=== PATIENT | female | born 2000 | race Caucasian/White ===

== ENCOUNTER 2025-01-10 02:54 | Inpatient (IN) | payer BC ==
[2025-01-10 03:17] VITALS: BMI 27.3
[2025-01-10] MEDS ORDERED: Carboprost 250 MCG/ML AMP IM PRN (03:40)
[2025-01-10] MEDS ORDERED: Ibuprofen 800 MG TAB PO PRN (03:40)
[2025-01-10] MEDS ORDERED: Methylergonovine 0.2 MG/ML VIAL IM PRN (03:40)
[2025-01-10] MEDS ORDERED: Diphenoxylate HCl/Atropine Tablet PO PRN ×2 (03:40)
[2025-01-10] MEDS ORDERED: Tranexamic Acid 1,000 MG/10 ML VIAL IVP PRN (03:40)
[2025-01-10] MEDS ORDERED: hydrALAZINE 20 MG/ML VIAL SLOW IVP PRN (03:40)
[2025-01-10] MEDS ORDERED: Lidocaine 1% (PF) 30 ML VIAL SC PRN (03:40)
[2025-01-10] MEDS ORDERED: Ondansetron PF 4 MG/2 ML Vial IVP PRN ×2 (03:40→20:37)
[2025-01-10] MEDS ORDERED: Acetaminophen 500 MG TAB PO PRN (03:40)
[2025-01-10] MEDS ORDERED: Oxytocin 30 units/NS 500 ML 500 ML IV SCH (03:45)
[2025-01-10 04:09] LABS: Hematocrit 42.7 % (34.9-44.5); Hemoglobin 14.0 g/dL (12.0-15.5); Mean Corpuscular Hemoglobin 24.6 pg (27.0-33.0); Mean Corpuscular Volume 75.2 fL (81.6-98.3); Platelet Count 260 10x3/uL (150-450); Red Blood Cell (RBC) Count 5.68 10x6/uL (3.90-5.03); White Blood Cell (WBC) Count 11.88 10x3/uL (3.5-10.5)
[2025-01-10 04:56] LABS: Syphilis Antibody Index 0.13 S/CO (<1.00 Non-Reactive)
[2025-01-10 04:57] LABS: Hep B Surf Ag - L&D Non-Reactive S/CO (NonReactive)
[2025-01-10] MEDS ORDERED: Bupivacaine 0.25% HCL 30 ML VIAL ONE (08:00)
[2025-01-10] MEDS: fentaNYL/Ropivacaine Epidural 100 ML ONE (20:10)
[2025-01-10] MEDS ORDERED: diphenhydrAMINE 50 MG/ML VIAL IVP PRN (20:37)
[2025-01-10] MEDS ORDERED: Acetaminophen 325 MG TAB PO PRN (20:37)
[2025-01-10] MEDS ORDERED: fentaNYL 2 mcg/Ropivacaine 0.2% Epidural 100 ML CADD EPIDURAL SCH (20:45)
[2025-01-10] MEDS ORDERED: Communication Order-Pharmacy FS SCH (20:45)
[2025-01-11] MEDS ORDERED: Bisacodyl 10 MG SUPP PR PRN (05:35)
[2025-01-11] MEDS ORDERED: Milk Of Magnesia 30 ML UDCUP PO PRN (05:35)
[2025-01-11] MEDS ORDERED: hydrALAZINE 20 MG/ML VIAL SLOW IVP PRN (05:35)
[2025-01-11] MEDS ORDERED: Benzocaine-Menthol 82.5 ML CAN TOP PRN (05:35)
[2025-01-11] MEDS ORDERED: Oxytocin 30 units/NS 500 ML 500 ML IV SCH (05:35)
[2025-01-11] MEDS ORDERED: Methylergonovine 0.2 MG/ML VIAL IM PRN (05:35)
[2025-01-11] MEDS ORDERED: HYDROcodone/Acetaminophen 5/325 mg Tablet PO PRN ×2 (05:35)
[2025-01-11] MEDS: Ibuprofen 800 MG TAB PO SCH (06:46)
[2025-01-11] MEDS: Boostrix 0.5 ML (Tdap) VIAL (>/=7 yrs of age) IM ONE (07:32)
[2025-01-11] MEDS: Ferrous Sulfate 325 MG TAB PO SCH (07:32)
[2025-01-12 07:58] VITALS: BP 100/57; TEMP 97.7
== END 2025-01-12 18:30 | disposition home or self-care (01) | DRG 807 ==
LOC: CSHLD/OP 02:54 → CSHLD 04:02 → CSHPP 01-11 05:00
PROVIDERS: ADMIT Obstetrics & Gynecology; ATTEND Obstetrics & Gynecology
PROC: 10E0XZZ Delivery of Products of Conception, External Approach (ICD-10-PCS; principal; 2025-01-11)
DX: O48.0 Post-term pregnancy (principal); Z37.0 Single live birth; Z3A.40 40 weeks gestation of pregnancy
CPT/HCPCS: 36415; 51701; 51702; 85027; 86780; 86850; 86900; 86901; 87340; 99285; J0665